=== PATIENT | female | born 1975 | race African-American/Black ===

== ENCOUNTER 2022-08-09 18:04 | Emergency (ER) | payer MEDICAID, OTHER | END 2022-08-09 20:05 | disposition home or self-care (01) | LOC: CSHERS 18:04 | DX: S93.402A Sprain of unspecified ligament of left ankle, initial encounter (principal); I10 Essential (primary) hypertension; G43.909 Migraine, unspecified, not intractable, without status migrainosus; Z79.899 Other long term (current) drug therapy; Z79.82 Long term (current) use of aspirin; F17.210 Nicotine dependence, cigarettes, uncomplicated; W18.39XA Other fall on same level, initial encounter ==

== ENCOUNTER 2023-05-16 09:10 | Emergency (ER) | payer OTHER | END 2023-05-16 10:59 | disposition home or self-care (01) | LOC: CSHERS 09:10 | DX: S93.401A Sprain of unspecified ligament of right ankle, initial encounter (principal); S93.402A Sprain of unspecified ligament of left ankle, initial encounter; I10 Essential (primary) hypertension; F17.210 Nicotine dependence, cigarettes, uncomplicated; W18.30XA Fall on same level, unspecified, initial encounter ==

== ENCOUNTER 2023-05-29 18:52 | Emergency (ER) | payer OTHER ==
[2023-05-29] MEDS ORDERED: Aspirin Chewable 81 MG TAB ONE (20:34)
[2023-05-29 20:51] LABS: BHCG - Serum Negative (NEGATIVE); Pregs Control Background? CLEAR/WHITE (CLR/WHITE); Pregs Control Bar Appear? YES (CONTROL BAR)
[2023-05-29 20:59] LABS: ALT (SGPT) 21 U/L (8-55); AST (SGOT) 22 U/L (5-34); Albumin 4.2 g/dL (3.5-5.0); Alkaline Phosphatase 99 U/L (40-110); Anion Gap 16 mmol/L (10-20); BUN (Urea Nitrogen) 13 mg/dL (7.0-18.7); Bilirubin, Total 0.4 mg/dL (0.2-1.2); Calc. Creatinine Clearance 0 mL/min (70-130); Calcium 9.2 mg/dL (7.8-10.44); Carbon Dioxide 28 mmol/L (22-29); Chloride 100 mmol/L (98-107); Estimated GFR 83; Globulin 3.2 g/dL (2.4-3.5); Glucose 101 mg/dL (70-105); Lipase 164 U/L (8-78); Magnesium 2.2 mg/dL (1.6-2.6); Potassium 2.9 mmol/L (3.5-5.1); Protein, Total 7.4 g/dL (6.0-8.3); Sodium 141 mmol/L (136-145)
[2023-05-29 21:18] LABS: #Basophils 0.1 10x3/uL (0.0-0.2); #Eosinphils 0.1 10x3/uL (0.0-0.5); #Monocytes 0.6 10x3/uL (0.0-1.1); #Neutrophils 3.3 10x3/uL (1.5-8.4); %Basophils 0.9 % (0.0-2.0); %Eosinophils 2.6 % (0.0-6.0); %Lymphocytes 24.8 % (18.0-47.0); %Monocytes 10.3 % (0.0-10.0); %Neutrophils 61.2 % (40.0-75.0); Hematocrit 35.4 % (34.9-44.5); Hemoglobin 11.9 g/dL (12.0-15.5); Hypochromia SLIGHT = 6-15 cells (100X) (0-5/hpf); Mean Corpuscular HGB CONC 33.6 g/dL (32.0-36.0); Mean Corpuscular Hemoglobin 24.6 pg (27.0-33.0); Mean Corpuscular Volume 73.1 fl (81.6-98.3); Mean Platelet Volume 11.3 fl (7.4-10.4); Microcytosis SLIGHT = 6-15 cells (100X) (0-5/hpf); Platelet Count 264 10x3/uL (150-450); RBC Distribution Width 15.7 % (11.5-14.5); Red Blood Cell (RBC) Count 4.84 10x6/uL (3.90-5.03); White Blood Cell (WBC) Count 5.5 10x3/uL (3.5-10.5)
[2023-05-29] MEDS ORDERED: Potassium Chloride 20 MEQ TAB ONE (21:59)
== END 2023-05-29 22:37 | disposition home or self-care (01) ==
LOC: CSHERS 18:52
DX: K85.90 Acute pancreatitis without necrosis or infection, unspecified (principal); E87.6 Hypokalemia; I10 Essential (primary) hypertension; F17.210 Nicotine dependence, cigarettes, uncomplicated
CPT/HCPCS: 71045; 80053; 83690; 83735; 83880; 84484; 84703; 85025; 93005

== ENCOUNTER 2023-08-25 20:46 | Observation (INO) | payer OTHER ==
[2023-08-25] MEDS ORDERED: Aspirin Chewable 81 MG TAB ONE (21:09)
[2023-08-25 21:42] LABS: #Eosinphils 0.2 10x3/uL (0.0-0.5); #Monocytes 0.6 10x3/uL (0.0-1.1); #Neutrophils 4.5 10x3/uL (1.5-8.4); %Basophils 0.6 % (0.0-2.0); %Eosinophils 2.3 % (0.0-6.0); %Lymphocytes 22.9 % (18.0-47.0); %Monocytes 8.1 % (0.0-10.0); %Neutrophils 65.8 % (40.0-75.0); Mean Corpuscular HGB CONC 33.3 g/dL (32.0-36.0); Mean Corpuscular Hemoglobin 24.3 pg (27.0-33.0); Mean Platelet Volume 11.3 fl (7.4-10.4); Platelet Count 222 10x3/uL (150-450); Red Blood Cell (RBC) Count 4.93 10x6/uL (3.90-5.03); White Blood Cell (WBC) Count 6.8 10x3/uL (3.5-10.5)
[2023-08-25 21:50] LABS: BHCG - Serum Negative (NEGATIVE); Pregs Control Background? CLEAR/WHITE (CLR/WHITE); Pregs Control Bar Appear? YES (CONTROL BAR)
[2023-08-25 21:56] LABS: ALT (SGPT) 18 U/L (8-55); AST (SGOT) 22 U/L (5-34); Albumin 4.1 g/dL (3.5-5.0); Alkaline Phosphatase 112 U/L (40-110); Anion Gap 15 mmol/L (10-20); BUN (Urea Nitrogen) 24 mg/dL (7.0-18.7); Bilirubin, Total 0.5 mg/dL (0.2-1.2); Calc. Creatinine Clearance 0 mL/min (70-130); Calcium 8.9 mg/dL (7.8-10.44); Carbon Dioxide 26 mmol/L (22-29); Chloride 102 mmol/L (98-107); Estimated GFR 52; Globulin 3.4 g/dL (2.4-3.5); Glucose 105 mg/dL (70-105); Protein, Total 7.5 g/dL (6.0-8.3); Sodium 140 mmol/L (136-145)
[2023-08-25 21:59] LABS: SARS-CoV-2 NAA Rapid Test Not Detected (NotDetected)
[2023-08-25 22:03] LABS: Potassium 2.6 mmol/L (3.5-5.1); Troponin I 0.094 ng/mL (< 0.028)
[2023-08-25 22:38] LABS: Magnesium 1.9 mg/dL (1.6-2.6)
[2023-08-25 23:07] LABS: RBC Morph Comment Within Normal Limits
[2023-08-25 23:08] LABS: Platelet Adequacy Comment Appears Adequate
[2023-08-25] MEDS ORDERED: Nitroglycerin 0.4 MG TAB 1 EACH ONE (23:08)
[2023-08-25] MEDS ORDERED: Potassium Chloride 20 MEQ TAB ONE (23:16)
[2023-08-25 23:43] LABS: Troponin I Less than 0.010 ng/mL (< 0.028)
[2023-08-26] MEDS ORDERED: Zolpidem Tartrate 5 MG TAB PO PRN (00:15)
[2023-08-26] MEDS ORDERED: Guaifenesin DM 100-10/5 ML UDCUP PO PRN (00:15)
[2023-08-26] MEDS ORDERED: Ondansetron PF 4 MG/2 ML Vial IVP PRN (00:15)
[2023-08-26] MEDS ORDERED: Senokot S 8.6-50 MG TAB PO PRN (00:15)
[2023-08-26] MEDS ORDERED: Calcium Carbonate 500 MG ChewTAB PO PRN (00:15)
[2023-08-26] MEDS ORDERED: Acetaminophen 325 MG TAB PO PRN (00:15)
[2023-08-26] MEDS ORDERED: Sertraline 25 MG TAB PO PRN (00:19)
[2023-08-26] MEDS ORDERED: traMADol HCl 50 MG TAB PO PRN (00:20)
[2023-08-26 01:37] VITALS: BMI 30.6
[2023-08-26] MEDS ORDERED: Carvedilol 3.125 MG TAB PO SCH (02:00)
[2023-08-26] MEDS ORDERED: Potassium Chloride 20 MEQ TAB PO SCH (02:00)
[2023-08-26] MEDS ORDERED: traMADol HCl 50 MG TAB PO SCH (02:00)
[2023-08-26] MEDS ORDERED: Nitroglycerin 2% Ointment 1 INCH/1 GM Packet TOP SCH (02:00)
[2023-08-26] MEDS ORDERED: Sodium Chloride 0.9% 1,000 ML IV SCH ×2 (02:00→07:45)
[2023-08-26] MEDS ORDERED: FLU VACC QS2023-24(6MOS UP)/PF 60 MCG/0.5 ML SYRINGE IM ONE (03:45)
[2023-08-26 04:54] LABS: Bilirubin Neg (Negative); Blood, Urine 250 (Negative); Clarity Clear (Clear); Glucose, Urine (Dipstick) Normal (Negative); Ketone, Urine Negative (Negative); Leukocyte Negative (Negative); Nitrite Negative (Negative); Protein, Urine (Dipstick) 15 mg/dl (Neg-Trace); Urobilinogen Normal mg/dL (Less than 2)
[2023-08-26 05:02] LABS: Amphetamine Not Detected (NotDetected); Barbiturates Screen Not Detected (NotDetected); Benzodiazepine Screen Not Detected (NotDetected); Cocaine Metabolite Screen Not Detected (NotDetected); Methadone Not Detected (NotDetected); Methamphetamine Not Detected (NotDetected); Opiate Screen Not Detected (NotDetected); Oxycodone Screen Not Detected (NotDetected); Phencyclidine (PCP) Not Detected (NotDetected); THC/Cannabinoid Screen Detected (NotDetected); Tricyclic Screen Not Detected (NotDetected)
[2023-08-26 05:03] LABS: Bacteria/HPF Rare-Few HPF (None Seen); Squamous Epithelial 0-3 HPF (0-3); WBC/HPF None Seen HPF (0-3)
[2023-08-26 05:31] LABS: CK (CPK) 126 U/L (29-168); Cholesterol 132 mg/dl (< 200 Desired); HDL Cholesterol 22 mg/dL (>60 Neg Risk); Lipase 293 U/L (8-78); Magnesium 2.1 mg/dL (1.6-2.6); Triglycerides 443 mg/dL (Less than 150)
[2023-08-26] MEDS ORDERED: Amlodipine 5 MG TAB PO SCH (06:00)
[2023-08-26] MEDS ORDERED: Carvedilol 12.5 MG TAB PO SCH (08:00)
[2023-08-26 08:07] LABS: Troponin I 0.021 ng/mL (< 0.028)
[2023-08-26 08:09] LABS: Anion Gap 15 mmol/L (10-20); BUN (Urea Nitrogen) 26 mg/dL (7.0-18.7); Calc. Creatinine Clearance 94 mL/min (70-130); Calcium 8.3 mg/dL (7.8-10.44); Carbon Dioxide 22 mmol/L (22-29); Chloride 107 mmol/L (98-107); Estimated GFR 82; Glucose 113 mg/dL (70-105); Potassium 3.4 mmol/L (3.5-5.1); Sodium 141 mmol/L (136-145)
[2023-08-26] MEDS ORDERED: Losartan 50 MG TAB PO SCH (09:00)
[2023-08-26] MEDS ORDERED: Aspirin 81 mg Enteric Coated Tablet PO SCH (09:00)
[2023-08-26 13:48] VITALS: BP 156/91; TEMP 97.6
[2023-08-26] MEDS ORDERED: Sertraline 100 MG TAB PO SCH (21:00)
[2023-08-26] MEDS ORDERED: lamoTRIgine 25 MG TAB PO SCH (21:00)
[2023-08-26] MEDS ORDERED: Atorvastatin Calcium 20 MG TAB PO SCH (21:00)
== END 2023-08-26 14:30 | disposition home or self-care (01) ==
LOC: CSHERS 20:46 → UNDOADMOB 22:04 → CSHTELE 22:04
PROVIDERS: ADMIT Student in an Organized Health Care Education/Training Program; ATTEND Hospitalist
DX: R91.1 Solitary pulmonary nodule (principal); R07.9 Chest pain, unspecified; I16.0 Hypertensive urgency; I10 Essential (primary) hypertension; E78.5 Hyperlipidemia, unspecified; F12.90 Cannabis use, unspecified, uncomplicated; F41.9 Anxiety disorder, unspecified; F32.A Depression, unspecified; R79.89 Other specified abnormal findings of blood chemistry; N17.9 Acute kidney failure, unspecified; E87.6 Hypokalemia; F10.10 Alcohol abuse, uncomplicated; F17.210 Nicotine dependence, cigarettes, uncomplicated; Z88.8 Allergy status to other drugs, medicaments and biological substances; Z86.73 Personal history of transient ischemic attack (TIA), and cerebral infarction without residual deficits; Z79.82 Long term (current) use of aspirin; Z79.899 Other long term (current) drug therapy
CPT/HCPCS: 36415; 71045; 71275; 74160; 74174; 76705; 80048; 80053; 80061; 80306; 81001; 82550; 83690; 83735; 83880; 84484; 84703; 85025; 85379; 86140; 93005; 96372; 96374; G0378; J1650; J2405; J7050

== ENCOUNTER 2024-07-15 08:22 | Emergency (ER) | payer OTHER ==
[2024-07-15] MEDS ORDERED: Nitroglycerin 0.4 MG TAB 1 EACH ONE (09:01)
[2024-07-15] MEDS ORDERED: Aspirin Chewable 81 MG TAB ONE (09:01)
[2024-07-15] MEDS ORDERED: Acetaminophen 500 MG TAB ONE (09:15)
[2024-07-15 09:39] LABS: #Basophils 0.04 10x3/uL (0.0-0.2); #Eosinophils 0.16 10x3/uL (0.0-0.5); #Monocytes 0.38 10x3/uL (0.0-1.1); #Neutrophils 3.98 10x3/uL (1.5-8.4); %Basophils 0.7 % (0.0-2.0); %Eosinophils 2.9 % (0.0-6.0); %Lymphocytes 17.2 % (18.0-47.0); %Monocytes 6.9 % (0.0-10.0); %Neutrophils 71.9 % (40.0-75.0); Hematocrit 38.2 % (34.9-44.5); Hemoglobin 12.5 g/dL (12.0-15.5); Mean Corpuscular HGB CONC 32.7 g/dL (32.0-36.0); Mean Corpuscular Hemoglobin 25.2 pg (27.0-33.0); Mean Corpuscular Volume 76.9 fL (81.6-98.3); Platelet Count 196 10x3/uL (150-450); RBC Distribution Width 15.2 % (11.5-14.5); Red Blood Cell (RBC) Count 4.97 10x6/uL (3.90-5.03); White Blood Cell (WBC) Count 5.5 10x3/uL (3.5-10.5)
[2024-07-15 10:04] LABS: ALT (SGPT) 15 U/L (8-55); AST (SGOT) 18 U/L (5-34); Albumin 3.7 g/dL (3.5-5.0); Alkaline Phosphatase 82 U/L (40-110); Anion Gap 12 mmol/L (10-20); BUN (Urea Nitrogen) 18 mg/dL (7.0-18.7); Bilirubin, Total 0.4 mg/dL (0.2-1.2); Calc. Creatinine Clearance 0 mL/min (70-130); Calcium 9.3 mg/dL (7.8-10.44); Carbon Dioxide 24 mmol/L (22-29); Chloride 107 mmol/L (98-107); Estimated GFR 78; Globulin 3.3 g/dL (2.4-3.5); Glucose 144 mg/dL (70-105); Lipase 121 U/L (8-78); Potassium 3.4 mmol/L (3.5-5.1); Sodium 140 mmol/L (136-145)
[2024-07-15 10:06] LABS: Troponin I Less than 0.010 ng/mL (< 0.028)
[2024-07-15 12:05] LABS: Bilirubin Neg (Negative); Blood, Urine Negative (Negative); Clarity Slightly Cloudy (Clear); Glucose, Urine (Dipstick) Normal (Negative); Ketone, Urine Negative (Negative); Leukocyte Negative (Negative); Nitrite Negative (Negative); Protein, Urine (Dipstick) 30 mg/dl (Neg-Trace); Specific Gravity, Urine 1.015 (1.005-1.030); Urobilinogen Normal mg/dL (Less than 2)
[2024-07-15 12:49] LABS: Bacteria/HPF 2+ HPF (None Seen); CAUTI Indications for Culture Pelvic or flank pain; Mucous/LPF 2+ LPF (<2+); RBC/HPF None Seen HPF (0-3); WBC/HPF 0-3 HPF (0-3)
[2024-07-15 12:51] LABS: Urine Culture Reflex No No
== END 2024-07-15 13:12 | disposition home or self-care (01) ==
LOC: CSHERS 08:22
DX: R29.898 Other symptoms and signs involving the musculoskeletal system (principal); I10 Essential (primary) hypertension; E78.00 Pure hypercholesterolemia, unspecified; F17.210 Nicotine dependence, cigarettes, uncomplicated; Z79.82 Long term (current) use of aspirin; Z79.899 Other long term (current) drug therapy
CPT/HCPCS: 71045; 80053; 81001; 83690; 83735; 83880; 84484; 85025; 85379; 93005

== ENCOUNTER 2024-09-01 09:32 | Emergency (ER) | payer OTHER | END 2024-09-01 10:02 | disposition home or self-care (01) | LOC: CSHERS 09:32 | DX: H74.8X1 Other specified disorders of right middle ear and mastoid (principal); F17.210 Nicotine dependence, cigarettes, uncomplicated; I10 Essential (primary) hypertension; E78.00 Pure hypercholesterolemia, unspecified; Z79.899 Other long term (current) drug therapy; Z55.0 Illiteracy and low-level literacy; Z79.82 Long term (current) use of aspirin | CPT/HCPCS: 99282 ==

== ENCOUNTER 2024-09-05 10:41 | Emergency (ER) | payer OTHER ==
[2024-09-05] MEDS ORDERED: methylPREDNISolone Sod Succ/PF 125 MG/2 ML VIAL ONE (11:10)
[2024-09-05] MEDS ORDERED: Ipratropium/Albuterol 3 ML NEB ONE (11:42)
== END 2024-09-05 12:12 | disposition home or self-care (01) ==
LOC: CSHERS 10:41
DX: J20.9 Acute bronchitis, unspecified (principal); J45.901 Unspecified asthma with (acute) exacerbation; I10 Essential (primary) hypertension; F17.210 Nicotine dependence, cigarettes, uncomplicated
CPT/HCPCS: 87428; 96372; 99283; J2919; J7620